=== PATIENT | male | born 1960 | race Caucasian/White ===

== ENCOUNTER 2023-06-07 16:27 | Emergency (ER) | payer OTHER, SELFPAY ==
[2023-06-07 16:34] VITALS: BP 164/85; PULSE 78; RESP 18; TEMP 36.6; O2SAT 97; BMI 25.1
--- NOTE | 2023-06-07 16:41 | DI.RAD.S_ITS ---
PROCEDURE: XR KNEE RT 3V INDICATIONS: Fell off ladder TECHNIQUE: 3 views of the knee were acquired. COMPARISON: None. FINDINGS: Bones: No acute fractures or dislocations. There is remote fragmentation of the tibial tuberosity. No suspicious bony lesions. Age-appropriate bony degenerative changes are seen. Soft tissues: No joint effusion. No suspicious soft tissue calcifications. IMPRESSION: No acute bony abnormality can be seen on these plain films. If there is point tenderness (or other clinical suspicion for a fracture not seen on these images) then a dedicated CT could be considered for further evaluation, if clinically appropriate. If it would be helpful for clinical management decision making, please consider a dedicated, scheduled knee MRI for further evaluation (assuming that there is no contraindication). Dictated by: Speedy Robert M.D. on 06/07/2023 at 16:20 Approved by: Speedy Robert M.D. on 06/07/2023 at 16:21
--- NOTE | 2023-06-07 18:12 | ED_ITS ---
HPI - Extremity Injury (Lower) <Ping Mendes PA-C - Last Filed: 06/07/23 18:26> General Chief Complaint: Extremity Injury, Lower Stated Complaint: right knee pain fell off ladder Time Seen by Provider: 06/07/23 17:10 Source: patient and family Mode of arrival: Ambulatory History of Present Illness HPI Narrative: Patient is a 62 yo male presenting with his 2 sisters for evaluation of right knee pain after a 7 ft fall from a ladder today onto his feet. Patient states that the ladder twisted and he fell 7 ft. He states that he landed with his right foot in his stump hole. He denies any pain to his foot, but states that his right knee buckled medially. He remembers feeling something snap on the medial side of his right knee. He denies hitting his head or neck. He denies any anticoagulant use. He denies any numbness in his right foot. He reports a previous bursa removal from his right knee and [place]. He states that he would prefer to take his own ibuprofen at home. He is from [place] and is visiting with his sisters for his brother's . He plans to return home tomorrow. Related Data Allergies Allergy/AdvReac Type Severity Reaction Status Date / Time No Known Drug Allergies Allergy Verified 06/07/23 16:34 Review of Systems <Ping Mendes PA-C - Last Filed: 06/07/23 18:26> Review of Systems Narrative: See HPI Patient History <Ping Mendes PA-C - Last Filed: 06/07/23 18:26> Social History Smoking Status: Never smoker Smoking Status: Never smoker alcohol intake frequency: holidays/special occasions only Substance Use Type: does not use Exam <Ping Mendes PA-C - Last Filed: 06/07/23 18:26> Initial Vital Signs Initial Vital Signs: Vital Signs Temperature 97.9 F 06/07/23 16:34 Pulse Rate 78 06/07/23 16:34 Respiratory Rate 18 06/07/23 16:34 Blood Pressure 164/85 H 06/07/23 16:34 Pulse Oximetry 97 06/07/23 16:34 Oxygen Delivery Method Room Air 06/07/23 16:34 GENERAL: 62 year old patient appears stated age. Well-developed patient, in no acute distress. HEAD: Atraumatic. Normocephalic. EYES: Pupils equal round No scleral icterus. No injection or drainage. NECK: Trachea midline, supple. No midline cervical spinal tenderness. RESPIRATORY: Speaking comfortably in normal tone of voice without any increased work of breathing. EXTREMITIES: Left knee has superficial abrasion present over anterior aspect, right knee has some swelling in the medial aspect, no tenderness to joint line, no tenderness to tibial plateau no tenderness over palpation of patella or lateral distal condyle of femur. Patient is tender over medial aspect of his right knee over swelling, no posterior tenderness palpated, popliteal pulse palpated 2+, posterior tibialis pulse in the right side 2+, patient demonstrates intact dorsiflexion with 5/5 strength as well as plantar flexion, he demonstrates ability to extend and flex his right knee although he has significant pain in his medial aspect worse with extension than flexion. Disposition discomfort is slightly flexed. He has bruising present in the anterior medial side of his knee. Joint feels stable with Gustavo's test, anterior and posterior drawer and valgus stress test, patient did not tolerate valgus stress test secondary to pain. No tenderness to palpation of shoulders elbows hands bilaterally. BACK: Nontender without deformity or crepitance. No midline thoracic or lumbar spinal tenderness. NEURO: AOx3. SKIN: No rash or erythema of visible areas <July Burch DO - Last Filed: 06/08/23 03:36> Initial Vital Signs Initial Vital Signs: Vital Signs Temperature 97.9 F 06/07/23 16:34 Pulse Rate 78 06/07/23 16:34 Respiratory Rate 18 06/07/23 16:34 Blood Pressure 164/85 H 06/07/23 16:34 Pulse Oximetry 97 06/07/23 16:34 Oxygen Delivery Method Room Air 06/07/23 16:34 Course <Ping Mendes PA-C - Last Filed: 06/07/23 18:26> Orders Ordered: ED Orders 06/07/23 16:41 XR knee RT 3V Stat Vital Signs Vital signs: Vital Signs - 8 hr 06/07/23 16:34 Temperature 97.9 F Pulse Rate 78 Respiratory Rate 18 Blood Pressure 164/85 H Pulse Oximetry 97 Oxygen Delivery Method Room Air <July C YazandickDO - Last Filed: 06/08/23 03:36> Orders Ordered: ED Orders 06/07/23 16:41 XR knee RT 3V Stat Vital Signs Vital signs: Vital Signs - 8 hr 06/07/23 16:34 Temperature 97.9 F Pulse Rate 78 Respiratory Rate 18 Blood Pressure 164/85 H Pulse Oximetry 97 Oxygen Delivery Method Room Air MDM - Extremity Injury (Lower) <Ping Mendes PA-C - Last Filed: 06/07/23 18:26> MDM Narrative Medical decision making narrative: Patient is a 62-year-old male presenting for evaluation after injury to right knee after a fall from 7 ft in the latter. He denies any back pain or numbness in his lower extremities after the incident. He has no tenderness to palpation of his back or neck. He denies any head trauma. Exam was consistent with swelling and tenderness of right medial knee. X-ray of right knee showed no fracture or dislocation. His symptoms seem most consistent with an MCL tear or possibly meniscus tear of his right knee. Patient was offered treatment for his pain, but deferred as he would prefer to take his own ibuprofen at home. I recommend follow up with Orthopedic of his choosing at home interim water after stabilization with knee brace and crutches in the ED. I recommend he keep right knee elevated, wrapped with an Aldo wrap, apply ice and take Tylenol ibuprofen as needed. I recommend increase rest and weight-bearing as tolerated with knee brace. No imaging was done for patient's back as he had no tenderness to palpation and no report of numbness or weakness of bilateral lower extremities, so my suspicion for injury to patient's back after fall is low. Multiple etiologies for patient's symptoms considered including, but not limited to: Right knee fracture, ACL tear, MCL tear, meniscus tear, Imaging reviewed: X-ray right knee showed no evidence of fracture dislocation. Patient's symptoms improved over duration of stay with above-stated therapies. Findings and discharge diagnosis discussed with patient/family followed by verbalization of understanding Return precautions discussed with patient/family whom verbalize understanding of diagnosis and plan Discharge Plan Departure Patient Disposition: Home Clinical Impression: MCL sprain of right knee Qualifiers: Encounter type: initial encounter Qualified Code(s): S83.411A - Sprain of medial collateral ligament of right knee, initial encounter Activity Restrictions/Additional Instructions: Thank you for coming in today for your care. You most likely have an MCL sprain of your right knee. Xray of your right knee showed no fracture or dislocation. I recommend that you receive a knee stabilizer and crutches and follow up with an Orthopedic of your choosing at home in [place]. I recommend that you take the brace off while at rest. You should elevate your right knee, apply ice and compression with an ALDO bandage. The brace should not be completely straight, but in a position of slight flexion to help provide stability to your knee. You may bear weight as tolerated, but emphasize rest until you can see an orthopedic. It was a pleaseure meeting you today. Stand Alone Forms: Patient Portal/API ED Sign-out <July Burch DO - Last Filed: 06/08/23 03:36> Cosign ED Attending [place] Attestation: I was immediately available in the department for consultation.
[2023-06-07 18:40] VITALS: BP 163/72; PULSE 78; RESP 18; TEMP 36.6; O2SAT 96
== END 2023-06-07 18:41 | disposition home or self-care (01) ==
PROVIDERS: Emergency Provider Physician Assistant
DX: S83.411A Sprain of medial collateral ligament of right knee, initial encounter (principal); W11.XXXA Fall on and from ladder, initial encounter
CPT/HCPCS: 73562; 99281; 99282